=== PATIENT | female | born 1980 | race Hispanic/Latino ===

== ENCOUNTER 2022-08-21 15:36 | Emergency (ER) | payer OTHER ==
[~2022-08-21] VITALS: Ht 154.9 cm; Wt 111.6 kg
[2022-08-21 16:09] LABS: BASOPHILS % (AUTO) 0.5 % (0.0-5.0); EOSINOPHILS % (AUTO) 0.7 % (0.0-8.0); HEMATOCRIT 34.5 % (36-48); LYMPHOCYTES % (AUTO) 23.5 % (21.0-51.0); MEAN CORPUSCULAR HEMOGLOBIN 22.7 pg (27.0-33.0); MEAN CORPUSCULAR HGB CONC 31.6 g/dL (32.0-36.0); MEAN CORPUSCULAR VOLUME 71.9 fL (79-99); MONOCYTES % (AUTO) 6.3 % (3.0-13.0); NEUTROPHILS % (AUTO) 68.7 % (40.0-77.0); PLATELET COUNT (AUTO) 426 K/uL (130-400); RED CELL DISTRIBUTION WIDTH 16.7 % (11.0-15.5); WHITE BLOOD COUNT (AUTO) 8.8 K/uL (4.8-10.8)
[2022-08-21 16:28] LABS: TOTAL PROTEIN, SERUM 8.1 g/dL (6.0-8.3)
[2022-08-21] MEDS ORDERED: LABETALOL 20MG SYG IV ONE (17:00)
[2022-08-21 17:18] LABS: MAGNESIUM 2.2 mg/dL (1.80-2.40); THYROID STIMULATING HORMONE 1.89 uIU/mL (0.36-3.74)
[2022-08-21] MEDS ORDERED: LIDOCAINE HCL 2% VISCOUS 15 ML UDCUP ONE (17:25)
[2022-08-21] MEDS ORDERED: MAG/ALUM/SIMETH 30 ML UDCUP ONE (17:25)
[2022-08-21] MEDS ORDERED: KETOROLAC 30MG VIAL (30MG/ML) IVP ONE (18:30)
[2022-08-21] MEDS ORDERED: ORPHENADRINE CITRATE 30 MG/ML ML IVP ONE (18:30)
[2022-08-21] MEDS ORDERED: FAMO-136 PO (19:28)
[2022-08-21] MEDS ORDERED: NAPR-1180 PO (19:28)
[2022-08-21 19:57] VITALS: BP 147/95
== END 2022-08-21 19:58 | disposition home or self-care (01) ==
LOC: EDH 15:36
DX: I10 Essential (primary) hypertension (principal); R07.89 Other chest pain; M25.512 Pain in left shoulder; Z20.822 Contact with and (suspected) exposure to COVID-19; Z87.442 Personal history of urinary calculi
CPT/HCPCS: 99285; 96374; 71045; 96375; 87635; 84443; 83735; 84484; 80053; 83690; 85025; 85378; 87804 ×2; 36415; 93005 ×2; C9803; J1885; J2360